=== PATIENT | female | born 2000 | race Caucasian/White ===

== ENCOUNTER → 2020-06-16 08:35 | Outpatient (BNVA) | payer OTHER, SELFPAY | PROVIDERS: Visit Provider Nurse Practitioner Family | DX: N39.0 Urinary tract infection, site not specified (principal); R10.2 Pelvic and perineal pain; N20.0 Calculus of kidney; A49.9 Bacterial infection, unspecified | CPT/HCPCS: 74018 ==

== ENCOUNTER → 2020-06-22 16:24 | Outpatient (BNVA) | payer OTHER, SELFPAY | PROVIDERS: Visit Provider Nurse Practitioner Family | DX: A49.9 Bacterial infection, unspecified (principal); N39.0 Urinary tract infection, site not specified | CPT/HCPCS: 81003 ==

== ENCOUNTER → 2020-12-13 13:21 | Outpatient (BNVA) | payer OTHER, SELFPAY | PROVIDERS: Visit Provider Nurse Practitioner | DX: M25.521 Pain in right elbow (principal) | CPT/HCPCS: 73080 ==